=== PATIENT | female | born 1965 | race Caucasian/White ===

== ENCOUNTER 2016-11-18 09:02 | Emergency (ER) | payer OTHER ==
[~2016-11-18] VITALS: Ht 165.1 cm; Wt 92.0 kg
[~2016-11-18 09:02] MED LIST: ALPR0.5T99 PO; CELE20TA PO; OMEP20TA PO
[2016-11-18 09:03] VITALS: BP 138/88; PULSE 98; RESP 16; TEMP 98.8; O2SAT 97
[2016-11-18 09:20] VITALS: BP 117/82; PULSE 85; RESP 18; TEMP 98.7; O2SAT 98
[2016-11-18] MEDS ORDERED: MORPHINE SULFATE 4 MG/ML INJ IV PUSH ONE (09:30)
[2016-11-18] MEDS ORDERED: ONDANSETRON HCL 4 MG/2 ML VIAL IV PUSH ONE (09:30)
--- NOTE | 2016-11-18 09:31 | PD ---
HPI Chief Complaint: Abdominal pain Time Seen by Provider: 09:09 Travel History International Travel<30 days: No Contact w/Intl Traveler<30days: No History of Present Illness HPI 51yo F with PMH of obesity s/p gastric bypass about 5 years ago presents to the ED with c/o nausea, nonbloody vomiting, right upper abdominal pain for 4 days. States pain is worst after eating. Pt has been having this pain intermittent ofr 4 months and had extensive work up including CT scan, US, MRI, endoscopy. Pt had endoscopy around 4-6 weeks ago and did not show any ulcer. States she has intermittent low grade fever. Denies any chest pain, sob, dysuria, hematuria, vaginal bleeding or discharge, focal weakness. PFSH Past Medical History Cancer: No Cardiovascular Problems: No Endocrine: No Genitourinary: No Immune Disorder: No Musculoskeletal: No Neurologic: No Psychiatric: No Reproductive: No Respiratory: Yes Sleep Apnea: Yes Past Surgical History Oral Surgery: Yes (T&A CHILDHOOD) Pacemaker: No Social History Tobacco Use: No Allergies-Medications (Allergen,Severity, Reaction): Coded Allergies: No Known Allergies (Unverified , 11/18/16) Reported Meds & Prescriptions Reported Meds & Active Scripts Active Tylenol (Acetaminophen) 325 Mg Tab 650 Mg PO Q6H PRN Reported Zofran Odt (Ondansetron Odt) 4 Mg Tab 4 Mg SL Q8HR PRN Ropinirole 3 Mg Tab 3 Mg PO HS Pantoprazole (Pantoprazole Sodium) 40 Mg Tab 40 Mg PO DAILY Klonopin (Clonazepam) 0.5 Mg Tab 0.5 Mg PO BID Sertraline (Sertraline HCl) 50 Mg Tab 50 Mg PO DAILY Review of Systems Except as stated in HPI: all other systems reviewed are Neg Physical Exam Narrative GENERAL: 51yo F in mild distress. SKIN: Focused skin assessment warm/dry. HEAD: Atraumatic. Normocephalic. EYES: Pupils equal and round. No scleral icterus. No injection or drainage. CARDIOVASCULAR: Regular rate and rhythm. No murmur appreciated. RESPIRATORY: No accessory muscle use. Clear to auscultation. Breath sounds equal bilaterally. GASTROINTESTINAL: Abdomen soft, +TTP RUQ. No rebound tenderness or guarding. MUSCULOSKELETAL: No obvious deformities. No clubbing. No cyanosis. No edema. NEUROLOGICAL: Awake and alert. No obvious cranial nerve deficits. Motor grossly within normal limits. Normal speech. PSYCHIATRIC: Appropriate mood and affect; insight and judgment normal. Data Data Last Documented VS Vital Signs Date Time Temp Pulse Resp B/P (MAP) Pulse Ox O2 Delivery O2 Flow Rate FiO2 11/18/16 12:28 11/18/16 09:27 18 11/18/16 09:20 98.7 85 98 11/18/16 09:03 Room Air Orders Orders Complete Blood Count With Diff (11/18/16:18) Basic Metabolic Panel (Bmp) (11/18/16:18) Lipase (11/18/16:18) Hepatic Functional Panel (11/18/16) Prothrombin Time / Inr (Pt) (11/18/16:) Act Partial Throm Time (Ptt) (11/18/16:18) Us Abdomen Gallbladder (11/18/16 ) Ondansetron Inj (Zofran Inj) (11/18/16 09:30) Morphine Inj (Morphine Inj) (11/18/16 09:30) Ed Urine Pregnancytest Poc (11/18/16 09:18) Ed Discharge Order (11/18/16 11:53) Labs Laboratory Tests Test 11/18/16 09:25 White Blood Count 10.6 TH/MM3 Red Blood Count 4.23 MIL/MM3 Hemoglobin 11.8 GM/DL Hematocrit 35.0 % Mean Corpuscular Volume 82.8 FL Mean Corpuscular Hemoglobin 28.0 PG Mean Corpuscular Hemoglobin Concent 33.8 % Red Cell Distribution Width 17.3 % Platelet Count 407 TH/MM3 Mean Platelet Volume 7.2 FL Neutrophils (%) (Auto) 56.2 % Lymphocytes (%) (Auto) 37.4 % Monocytes (%) (Auto) 5.2 % Eosinophils (%) (Auto) 0.7 % Basophils (%) (Auto) 0.5 % Neutrophils # (Auto) 6.0 TH/MM3 Lymphocytes # (Auto) 4.0 TH/MM3 Monocytes # (Auto) 0.6 TH/MM3 Eosinophils # (Auto) 0.1 TH/MM3 Basophils # (Auto) 0.1 TH/MM3 CBC Comment DIFF FINAL Differential Comment Prothrombin Time 10.7 SEC Prothromb Time International Ratio 1.0 RATIO Activated Partial Thromboplast Time 26.8 SEC Blood Urea Nitrogen 11 MG/DL Creatinine 0.56 MG/DL Random Glucose 87 MG/DL Total Protein 7.1 GM/DL Albumin 3.3 GM/DL Calcium Level 8.5 MG/DL Alkaline Phosphatase 86 U/L Aspartate Amino Transf (AST/SGOT) 16 U/L Alanine Aminotransferase (ALT/SGPT) 16 U/L Total Bilirubin 0.3 MG/DL Direct Bilirubin 0.1 MG/DL Sodium Level 140 MEQ/L Potassium Level 3.7 MEQ/L Chloride Level 107 MEQ/L Carbon Dioxide Level 22.7 MEQ/L Anion Gap 10 MEQ/L Estimat Glomerular Filtration Rate 114 ML/MIN Indirect Bilirubin 0.2 MG/DL Lipase 158 U/L [facility] Medical Decision Making Medical Screen Exam Complete: Yes Emergency Medical Condition: Yes Interpretation(s) Laboratory Tests Test 11/18/16 09:25 White Blood Count 10.6 TH/MM3 (4.0-11.0) Red Blood Count 4.23 MIL/MM3 (4.00-5.30) Hemoglobin 11.8 GM/DL (11.6-15.3) Hematocrit 35.0 % (35.0-46.0) Mean Corpuscular Volume 82.8 FL (80.0-100.0) Mean Corpuscular Hemoglobin 28.0 PG (27.0-34.0) Mean Corpuscular Hemoglobin Concent 33.8 % (32.0-36.0) Red Cell Distribution Width 17.3 % (11.6-17.2) Platelet Count 407 TH/MM3 (150-450) Mean Platelet Volume 7.2 FL (7.0-11.0) Neutrophils (%) (Auto) 56.2 % (16.0-70.0) Lymphocytes (%) (Auto) 37.4 % (9.0-44.0) Monocytes (%) (Auto) 5.2 % (0.0-8.0) Eosinophils (%) (Auto) 0.7 % (0.0-4.0) Basophils (%) (Auto) 0.5 % (0.0-2.0) Neutrophils # (Auto) 6.0 TH/MM3 (1.8-7.7) Lymphocytes # (Auto) 4.0 TH/MM3 (1.0-4.8) Monocytes # (Auto) 0.6 TH/MM3 (0-0.9) Eosinophils # (Auto) 0.1 TH/MM3 (0-0.4) Basophils # (Auto) 0.1 TH/MM3 (0-0.2) CBC Comment DIFF FINAL Differential Comment Prothrombin Time 10.7 SEC (9.8-11.6) Prothromb Time International Ratio 1.0 RATIO Activated Partial Thromboplast Time 26.8 SEC (24.3-30.1) Blood Urea Nitrogen 11 MG/DL (7-18) Creatinine 0.56 MG/DL (0.50-1.00) Random Glucose 87 MG/DL (74-106) Total Protein 7.1 GM/DL (6.4-8.2) Albumin 3.3 GM/DL (3.4-5.0) Calcium Level 8.5 MG/DL (8.5-10.1) Alkaline Phosphatase 86 U/L (45-117) Aspartate Amino Transf (AST/SGOT) 16 U/L (15-37) Alanine Aminotransferase (ALT/SGPT) 16 U/L (10-53) Total Bilirubin 0.3 MG/DL (0.2-1.0) Direct Bilirubin 0.1 MG/DL (0.0-0.2) Sodium Level 140 MEQ/L (136-145) Potassium Level 3.7 MEQ/L (3.5-5.1) Chloride Level 107 MEQ/L (98-107) Carbon Dioxide Level 22.7 MEQ/L (21.0-32.0) Anion Gap 10 MEQ/L (5-15) Estimat Glomerular Filtration Rate 114 ML/MIN (>89) Indirect Bilirubin 0.2 MG/DL (0.0-0.8) Lipase 158 U/L (73-393) Last Impressions Gall Bladder Ultrasound 11/18/16 0000 Signed Impressions: Service Date/Time: Friday, November 18, 2016 09:36 - CONCLUSION: 1. Unremarkable ultrasound examination of the abdomen. Bandar Laboy MD Differential Diagnosis Acute cholecystitis vs. biliary colic vs. pancreatitis vs. gastritis Narrative Course 51yo F with intermittent RUQ pain for 4 months. negative. Pt has had an extensive work up as an outpatient and said there is a scheduled HIDA scan. Labs reviewed, no leukocytosis. LFT unremarkable. Lipase normal. US gallbladder unremarkable. Vital signs stable. Pt given morphine 4mg IV and zofran. Pt reevaluated at bedside and feels better. Pt has outpatient work up for this pain and can follow up as outpatient. Return precautions given. Diagnosis Primary Impression: Abdominal pain Qualified Codes: R10.11 - Right upper quadrant pain Patient Instructions: General Instructions Departure Forms: Tests/Procedures Additional Instructions: Please follow up with your primary care physician. Return to the ED if symptoms worsen. Med/Other Pt SpecificInfo: Prescription(s) given Scripts Acetaminophen (Tylenol) 325 Mg Tab 650 MG PO Q6H Y for PAIN SCALE 1 TO 4, #20 TAB 0 Refills Prov: Lawanda Ryan DO 11/18/16 Disposition: 01 DISCHARGE HOME Condition: Stable Lawanda Ryan DO Nov 18, 2016 09:30
[2016-11-18] MEDS ORDERED: CLON.5 PO (09:35)
[2016-11-18] MEDS ORDERED: SERT-132 PO (09:35)
[2016-11-18] MEDS ORDERED: ROPI3TAB PO (09:35)
[2016-11-18] MEDS ORDERED: PANT40TA3 PO (09:35)
[2016-11-18] MEDS ORDERED: ZOFR4TAB3 SL (09:37)
[2016-11-18 09:48] LABS: BASOPHIL # 0.1 TH/MM3 (0-0.2); BASOPHIL % 0.5 % (0.0-2.0); EOSINOPHIL # 0.1 TH/MM3 (0-0.4); EOSINOPHIL % 0.7 % (0.0-4.0); HEMO FLAGS DIFF FINAL; LYMPH % 37.4 % (9.0-44.0); MEAN CELL VOLUME 82.8 FL (80.0-100.0); MEAN CORPUSCULAR HGB CONC 33.8 % (32.0-36.0); MONO % 5.2 % (0.0-8.0); NEUT % 56.2 % (16.0-70.0); PLATELET COUNT 407 TH/MM3 (150-450); RED BLOOD COUNT 4.23 MIL/MM3 (4.00-5.30); RED CELL DISTRIBUTION WIDTH 17.3 % (11.6-17.2); WHITE BLOOD COUNT 10.6 TH/MM3 (4.0-11.0)
[2016-11-18 09:56] LABS: APTT (PATIENT) 26.8 SEC (24.3-30.1); PROTHROMBIN TIME - PATIENT 10.7 SEC (9.8-11.6)
[2016-11-18 10:10] LABS: BICARBONATE 22.7 MEQ/L (21.0-32.0); POTASSIUM 3.7 MEQ/L (3.5-5.1)
[2016-11-18 10:12] LABS: INDIRECT BILIRUBIN 0.2 MG/DL (0.0-0.8); TOTAL BILIRUBIN ADULT 0.3 MG/DL (0.2-1.0)
--- NOTE | 2016-11-18 10:42 | RADRPT ---
EXAM DATE/TIME: 11/18/2016 09:36 [facility] COMPARISON: No previous studies available for comparison. EXTERNAL COMPARISON : [employer] [facility], MR Abdomen, September 26, 2016CT Abdomen, TLI, 09/22/16 INDICATIONS : Right upper quadrant pain, nausea and vomiting. MEDICAL HISTORY : Right upper quadrant pain, nausea and vomiting. SURGICAL HISTORY : Gastric bypass. ENCOUNTER: Subsequent ACUITY: 4-6 months PAIN SCORE: 4/10 LOCATION: Right upper quadrant MEASUREMENTS: LIVER: 18.4 cm length COMMON DUCT: 4 mm RIGHT KIDNEY: 10.7 x 5.6 x 5.5 cm FINDINGS: LIVER: Normal echotexture without focal lesion or ductal dilatation. COMMON DUCT: No intraluminal mass or stone visualized. GALLBLADDER: Contains no stones, demonstrates no wall thickening or pericholecystic fluid. PANCREAS: The visualized portions are within normal limits. RIGHT KIDNEY: No evidence of hydronephrosis, stone, or mass. CONCLUSION: 1. Unremarkable ultrasound examination of the abdomen. Bandar Laboy MD on November 18, 2016 at 10:20 Board Certified Radiologist. This report was verified electronically.
[2016-11-18] MEDS ORDERED: TYLE325T PO (11:53)
== END 2016-11-18 12:39 | disposition home or self-care (01) ==
LOC: NEPE 09:02
DX: R10.11 Right upper quadrant pain (principal)
CPT/HCPCS: 76705; 80048; 80076; 83690; 84703; 85025; 85610; 85730; 96374; 96375; 99285; J2270; J2405

== ENCOUNTER 2016-11-21 15:07 | Emergency (ER) | payer OTHER ==
[~2016-11-21] VITALS: Ht 165.1 cm; Wt 95.0 kg
[~2016-11-21 15:07] MED LIST changes: +CLON.5 PO; +PANT40TA3 PO; +ROPI3TAB PO; +SERT-132 PO; +TYLE325T PO; +ZOFR4TAB3 SL
[2016-11-21 15:10] VITALS: BP 147/87; PULSE 97; RESP 18; TEMP 98.7; O2SAT 97
[2016-11-21 16:08] VITALS: BP 144/77; PULSE 75; RESP 16; O2SAT 94
[2016-11-21] MEDS ORDERED: SODIUM CHLOR 0.9% 1000 ML INJ 1,000 ML IV ONE (16:22)
--- NOTE | 2016-11-21 16:25 | PD ---
HPI Chief Complaint: GI Complaint Time Seen by Provider: 16:13 Travel History International Travel<30 days: No Contact w/Intl Traveler<30days: No Traveled to known affect area: No History of Present Illness HPI 51-year-old female presents to the emergency department for evaluation of nausea , vomiting, diarrhea that is been ongoing for 4 months. Patient states that her primary care physician has worked her up including MRI, CT abdomen/pelvis, 2 ultrasounds of the gallbladder. She states that she needs a HIDA scan, but is now just and they're unable to do it right now. Patient states that she had bariatric surgery done by Dr. Hoffmann 6 years ago. She has not been able to follow-up with him since symptoms have started. Her at bedside are hoping to have gallbladder removed. Patient was here 3 days ago and lab work, ultrasound the gallbladder were completed. Laboratory showed no acute abnormality. Ultrasound of the gallbladder was unremarkable. PFSH Past Medical History Anxiety: Yes Depression: Yes Cancer: No Cardiovascular Problems: No Diabetes: No Endocrine: No Genitourinary: No Immune Disorder: No Implanted Vascular Access Dvce: No Musculoskeletal: No Neurologic: No Psychiatric: No Reproductive: No Respiratory: Yes Sleep Apnea: Yes ?: Not Past Surgical History Abdominal Surgery: Yes (GASTRIC BYPASS 2010) Oral Surgery: Yes (T&A CHILDHOOD) Pacemaker: No Other Surgery: Yes Social History Alcohol Use: Yes (OCCAS) Tobacco Use: No Substance Use: No Allergies-Medications (Allergen,Severity, Reaction): Coded Allergies: No Known Allergies (Unverified , 11/18/16) Reported Meds & Prescriptions Reported Meds & Active Scripts Active Macrobid (Nitrofurantoin Monohydrate Macrocrystals) 100 Mg Capsule 100 Mg PO BID 7 Days Tylenol (Acetaminophen) 325 Mg Tab 650 Mg PO Q6H PRN Reported Zofran Odt (Ondansetron Odt) 4 Mg Tab 4 Mg SL Q8HR PRN Ropinirole 3 Mg Tab 3 Mg PO HS Pantoprazole (Pantoprazole Sodium) 40 Mg Tab 40 Mg PO DAILY Klonopin (Clonazepam) 0.5 Mg Tab 0.5 Mg PO BID Sertraline (Sertraline HCl) 50 Mg Tab 50 Mg PO DAILY Review of Systems Except as stated in HPI: all other systems reviewed are Neg Physical Exam Narrative GENERAL: Well-nourished, well-developed female patient, ambulatory. Afebrile. SKIN: Focused skin assessment warm/dry. HEAD: Normocephalic. Atraumatic. EYES: No scleral icterus. No injection or drainage. NECK: Supple, trachea midline. No JVD or lymphadenopathy. CARDIOVASCULAR: Regular rate and rhythm without murmurs, gallops, or rubs. RESPIRATORY: Breath sounds equal bilaterally. No accessory muscle use. Lungs sounds are clear to auscultation GASTROINTESTINAL: Abdomen soft, non-tender, nondistended. MUSCULOSKELETAL: No cyanosis, or edema. BACK: Nontender without obvious deformity. No CVA tenderness. Data Data Last Documented VS Vital Signs Date Time Temp Pulse Resp B/P (MAP) Pulse Ox O2 Delivery O2 Flow Rate FiO2 11/21/16 16:08 75 16 144/77 (99) 94 Room Air 11/21/16 15:10 98.7 Orders Orders Complete Blood Count With Diff (11/21/16 16:22) Comprehensive Metabolic Panel (11/21/16 16:22) Urinalysis - C+S If Indicated (11/21/16 16:22) Lipase (11/21/16 16:22) Iv Access Insert/Monitor (11/21/16 16:22) Ecg Monitoring (11/21/16 16:22) Oximetry (11/21/16 16:22) Ondansetron Inj (Zofran Inj) (11/21/16 16:30) Sodium Chlor 0.9% 1000 Ml Inj (Ns 1000 M (11/21/16 16:22) Sodium Chloride 0.9% Flush (Ns Flush) (11/21/16 16:30) Urine Culture (11/21/16 16:34) Ed Discharge Order (11/21/16 18:17) Labs Laboratory Tests Test 11/21/16 16:29 11/21/16 16:34 White Blood Count 10.8 TH/MM3 Red Blood Count 4.66 MIL/MM3 Hemoglobin 12.4 GM/DL Hematocrit 38.7 % Mean Corpuscular Volume 83.0 FL Mean Corpuscular Hemoglobin 26.6 PG Mean Corpuscular Hemoglobin Concent 32.1 % Red Cell Distribution Width 17.5 % Platelet Count 441 TH/MM3 Mean Platelet Volume 7.5 FL Neutrophils (%) (Auto) 45.1 % Lymphocytes (%) (Auto) 47.0 % Monocytes (%) (Auto) 6.5 % Eosinophils (%) (Auto) 0.7 % Basophils (%) (Auto) 0.7 % Neutrophils # (Auto) 4.9 TH/MM3 Lymphocytes # (Auto) 5.0 TH/MM3 Monocytes # (Auto) 0.7 TH/MM3 Eosinophils # (Auto) 0.1 TH/MM3 Basophils # (Auto) 0.1 TH/MM3 CBC Comment DIFF FINAL Differential Comment Blood Urea Nitrogen 11 MG/DL Creatinine 0.66 MG/DL Random Glucose 85 MG/DL Total Protein 7.8 GM/DL Albumin 3.7 GM/DL Calcium Level 9.1 MG/DL Alkaline Phosphatase 89 U/L Aspartate Amino Transf (AST/SGOT) 18 U/L Alanine Aminotransferase (ALT/SGPT) 15 U/L Total Bilirubin 0.4 MG/DL Sodium Level 139 MEQ/L Potassium Level 3.3 MEQ/L Chloride Level 106 MEQ/L Carbon Dioxide Level 22.9 MEQ/L Anion Gap 10 MEQ/L Estimat Glomerular Filtration Rate 94 ML/MIN Lipase 145 U/L Urine Color YELLOW Urine Turbidity HAZY Urine pH 6.0 Urine Specific [place] 1.019 Urine Protein NEG mg/dL Urine Glucose (UA) NEG mg/dL Urine Ketones NEG mg/dL Urine Occult Blood NEG Urine Nitrite NEG Urine Bilirubin NEG Urine Urobilinogen 2.0 MG/DL Urine Leukocyte Esterase LARGE Urine WBC 16 /hpf Urine Squamous Epithelial Cells 2 /hpf Urine Bacteria OCC /hpf Urine Mucus FEW /lpf Microscopic Urinalysis Comment CULTURE INDICATED MDM Medical Decision Making Medical Screen Exam Complete: Yes Emergency Medical Condition: Yes Medical Record Reviewed: Yes Differential Diagnosis Cholelithiasis versus cholecystitis versus chronic abdominal pain Narrative Course 51-year-old female presents to the emergency department for nausea, vomiting, diarrhea, abdominal pain for 4 months. Patient was seen here 3 days ago the emergency department had unremarkable workup and ultrasound. The patient is frustrated as she does not have an answer to her pain. She is unable to HIDA scan at this time due to lack of dye. He has not followed up with Dr. Rojas at this time. CBC shows no acute abnormality. Patient is slightly hypokalemic with a potassium of 3.3. UA shows large leukocyte esterase, 16 WBC , occasional bacteria. My attending physician, Dr. Goodman, spoke with family as well as their frustrated and wanted her to have her gallbladder out today. There is no evidence of acute infection at this time. The states that he called Dr. Rojas's office who states that we should call Dr. Peters who is on-call for Dr. Rojas,, about what is going on. The has been is adamant that we contact the surgeon. He does state that the office stated that they could fit him in on Thursday. Before Dr. Peters could return call, the patient and her wanted to leave. She is provided a prescription for Macrobid for UTI. She is instructed to follow up with Dr. Rojas. Diagnosis Primary Impression: RUQ abdominal pain Additional Impression: Urinary tract infection Qualified Codes: N30.00 - Acute cystitis without hematuria Referrals: Edmund Bobby MD 3 days Patient Instructions: Abdominal Pain (ED), General Instructions Additional Instructions: Follow-up with Dr. Rojas on Thursday. Return the emergency department for any acute worsening of symptoms. Med/Other Pt SpecificInfo: Prescription(s) given Scripts Nitrofurantoin Monohydrate Macrocrystals (Macrobid) 100 Mg Capsule 100 MG PO BID for Infection for 7 Days, #14 CAP 0 Refills Prov: Yojana De Los Santos 11/21/16 Disposition: 01 DISCHARGE HOME Condition: Stable Yojana De Los Santos Nov 21, 2016 16:25
[2016-11-21] MEDS ORDERED: SODIUM CHLORIDE 0.9% FLUSH 10 ML FLUSH IVF PRN (16:30)
[2016-11-21] MEDS ORDERED: ONDANSETRON HCL 4 MG/2 ML VIAL IV PUSH ONE (16:30)
[2016-11-21 16:59] LABS: AUTOMATED NEUTROPHIL # 4.9 TH/MM3 (1.8-7.7); BASOPHIL # 0.1 TH/MM3 (0-0.2); BASOPHIL % 0.7 % (0.0-2.0); EOSINOPHIL # 0.1 TH/MM3 (0-0.4); EOSINOPHIL % 0.7 % (0.0-4.0); HEMATOCRIT 38.7 % (35.0-46.0); HEMO FLAGS DIFF FINAL; MEAN CORPUSCULAR HEMOGLOBIN 26.6 PG (27.0-34.0); MEAN CORPUSCULAR HGB CONC 32.1 % (32.0-36.0); MONO % 6.5 % (0.0-8.0); NEUT % 45.1 % (16.0-70.0); PLATELET COUNT 441 TH/MM3 (150-450); RED BLOOD COUNT 4.66 MIL/MM3 (4.00-5.30); RED CELL DISTRIBUTION WIDTH 17.5 % (11.6-17.2); WHITE BLOOD COUNT 10.8 TH/MM3 (4.0-11.0)
[2016-11-21 17:09] LABS: BACTERIA, URINE OCC /hpf; BLOOD, URINE NEG (NEG); COMMENT (UR) CULTURE INDICATED; CULTURE IF INDICATED CULTURE INDICATED; GLUCOSE,URINE NEG (NEG); KETONE, URINE NEG (NEG); MUCUS URINE FEW /lpf (OCC); NITRITE,URINE NEG (NEG); SQUAMOUS EPITHELIAL CELL URINE 2 /hpf (0-5); URINE COLOR YELLOW (YELLW/STRAW)
[2016-11-21 17:11] LABS: ALT (GPT) 15 U/L (10-53); ANION GAP 10 MEQ/L (5-15); AST (GOT) 18 U/L (15-37); BICARBONATE 22.9 MEQ/L (21.0-32.0); BLOOD UREA NITROGEN 11 MG/DL (7-18); CHLORIDE 106 MEQ/L (98-107); GLOMERULAR FILTRATION RATE 94 ML/MIN (>89); POTASSIUM 3.3 MEQ/L (3.5-5.1); SODIUM (NA) 139 MEQ/L (136-145)
[2016-11-21 17:14] LABS: ALKALINE PHOSPHATASE 89 U/L (45-117); TOTAL BILIRUBIN ADULT 0.4 MG/DL (0.2-1.0)
[2016-11-21] MEDS ORDERED: MACR100C2 PO (17:45)
--- NOTE | 2016-11-21 19:18 | PD ---
Data Data Last Documented VS Vital Signs Date Time Temp Pulse Resp B/P (MAP) Pulse Ox O2 Delivery O2 Flow Rate FiO2 11/21/16 18:50 11/21/16 16:08 75 16 94 Room Air 11/21/16 15:10 98.7 Orders Orders Complete Blood Count With Diff (11/21/16 16:22) Comprehensive Metabolic Panel (11/21/16 16:22) Urinalysis - C+S If Indicated (11/21/16 16:) Lipase (11/21/16:) Iv Access Insert/Monitor (11/21/16 16:22) Ecg Monitoring (11/21/16 16:) Oximetry (11/21/16 16:) Ondansetron Inj (Zofran Inj) (11/21/16 16:30) Sodium Chlor 0.9% 1000 Ml Inj (Ns 1000 M (11/21/16 16:22) Sodium Chloride 0.9% Flush (Ns Flush) (11/21/16 16:30) Urine Culture (11/21/16 16:34) Ed Discharge Order (11/21/16 18:17) Labs Laboratory Tests Test 11/21/16 16:29 11/21/16 16:34 White Blood Count 10.8 TH/MM3 Red Blood Count 4.66 MIL/MM3 Hemoglobin 12.4 GM/DL Hematocrit 38.7 % Mean Corpuscular Volume 83.0 FL Mean Corpuscular Hemoglobin 26.6 PG Mean Corpuscular Hemoglobin Concent 32.1 % Red Cell Distribution Width 17.5 % Platelet Count 441 TH/MM3 Mean Platelet Volume 7.5 FL Neutrophils (%) (Auto) 45.1 % Lymphocytes (%) (Auto) 47.0 % Monocytes (%) (Auto) 6.5 % Eosinophils (%) (Auto) 0.7 % Basophils (%) (Auto) 0.7 % Neutrophils # (Auto) 4.9 TH/MM3 Lymphocytes # (Auto) 5.0 TH/MM3 Monocytes # (Auto) 0.7 TH/MM3 Eosinophils # (Auto) 0.1 TH/MM3 Basophils # (Auto) 0.1 TH/MM3 CBC Comment DIFF FINAL Differential Comment Blood Urea Nitrogen 11 MG/DL Creatinine 0.66 MG/DL Random Glucose 85 MG/DL Total Protein 7.8 GM/DL Albumin 3.7 GM/DL Calcium Level 9.1 MG/DL Alkaline Phosphatase 89 U/L Aspartate Amino Transf (AST/SGOT) 18 U/L Alanine Aminotransferase (ALT/SGPT) 15 U/L Total Bilirubin 0.4 MG/DL Sodium Level 139 MEQ/L Potassium Level 3.3 MEQ/L Chloride Level 106 MEQ/L Carbon Dioxide Level 22.9 MEQ/L Anion Gap 10 MEQ/L Estimat Glomerular Filtration Rate 94 ML/MIN Lipase 145 U/L Urine Color YELLOW Urine Turbidity HAZY Urine pH 6.0 Urine Specific [place] 1.019 Urine Protein NEG mg/dL Urine Glucose (UA) NEG mg/dL Urine Ketones NEG mg/dL Urine Occult Blood NEG Urine Nitrite NEG Urine Bilirubin NEG Urine Urobilinogen 2.0 MG/DL Urine Leukocyte Esterase LARGE Urine WBC 16 /hpf Urine Squamous Epithelial Cells 2 /hpf Urine Bacteria OCC /hpf Urine Mucus FEW /lpf Microscopic Urinalysis Comment CULTURE INDICATED MDM Supervised Visit with YSABEL: Yes Narrative Course The history, exam, and medical decision-making in the associated midlevel provider note were completed with my assistance. I reviewed and agree with the findings presented. I attest that I had a [id number] encounter with the patient on the same day, and personally performed and documented my assessment and findings in the medical record. *My assessment and Findings: This is a 51-year-old female who presents to the emergency department with right upper quadrant pain that's been persistent for 4 months. She's had multiple evaluations including an endoscopy, CT scan, MRI and multiple ultrasounds. At this point it is thought that the etiology is her gallbladder although she has no stones. HIDA scan has been recommended to her but she's been unable to get it because they are out of the contrast agent. She has an appointment scheduled with Dr. Rojas who did her [id number] 3 years ago and she called today to get it rescheduled for Thursday. Labs were obtained which were all reassuring. She had an ultrasound which again was reassuring. This pain is chronic. The family had the expectation that they would be admitted for surgery and that they would see a general surgeon in the emergency department. I counseled them that given she has no signs of acute cholecystitis currently and her imaging and blood work is reassuring I think she is safe for outpatient follow-up on Thursday. We did say that we would talk to Dr. Peters who is on-call for Dr. Bobby. Ultimately the family became frustrated and didn't want to wait for the phone call. I do think she is safe for outpatient follow up. Pt. was discharged with antibiotic for urinary tract infection. Diagnosis Primary Impression: RUQ abdominal pain Additional Impression: Urinary tract infection Referrals: Edmund Bobby MD call for appointment Patient Instructions: General Instructions, Abdominal Pain (ED) Departure Forms: Tests/Procedures Additional Instruction: Follow-up with Dr. Rojas on Thursday. Return the emergency department for any acute worsening of symptoms. Scripts Nitrofurantoin Monohydrate Macrocrystals (Macrobid) 100 Mg Capsule 100 MG PO BID for Infection for 7 Days, #14 CAP 0 Refills Prov: FilibertoYojana 11/21/16 Disposition: 01 DISCHARGE HOME Condition: Stable Shira Harley MD Nov 21, 2016 19:18
== END 2016-11-21 18:51 | disposition home or self-care (01) ==
LOC: NEPE 15:07
DX: N30.00 Acute cystitis without hematuria (principal); F41.9 Anxiety disorder, unspecified; F32.9 Major depressive disorder, single episode, unspecified; Z79.899 Other long term (current) drug therapy
CPT/HCPCS: 80053; 81001; 83690; 85025; 87086; 96374; 99284; J2405; J7030

== ENCOUNTER 2016-11-26 08:02 | Inpatient (IN) | payer OTHER ==
[~2016-11-26] VITALS: Ht 166.4 cm; Wt 93.0 kg
[~2016-11-26 08:02] MED LIST changes: -ALPR0.5T99 PO; -CELE20TA PO; +MACR100C2 PO; -OMEP20TA PO
[2016-11-26] MEDS ORDERED: METOPROLOL TARTRATE 25 MG TAB PO PRN ×2 (09:00→14:45)
[2016-11-26] MEDS ORDERED: APREPITANT 40 MG CAP PO SCH (09:00)
[2016-11-26] MEDS ORDERED: ceFAZolin 2 GM PREMIX 50 ML IV SCH (09:00)
[2016-11-26] MEDS ORDERED: INSULIN HUMAN REGULAR 1,000 UNITS/10 ML VIAL SQ PRN ×2 (09:00→14:45)
[2016-11-26] MEDS ORDERED: ACETAMINOPHEN 1000 MG/100 ML 100 ML IV SCH (09:00)
[2016-11-26] MEDS ORDERED: SODIUM CHLORID 0.9% 500 ML IV PRN ×2 (09:00)
[2016-11-26] MEDS ORDERED: LACTATED RINGER'S 1000 ML IV PRN ×2 (09:00)
[2016-11-26] MEDS ORDERED: metroNIDAZOLE 500 MG INJ 100 ML IV SCH (09:00)
[2016-11-26] MEDS ORDERED: ONDANSETRON HCL 4 MG/2 ML VIAL IV PUSH SCH (09:00)
[2016-11-26] MEDS ORDERED: POVIDONE IODINE 5% (ANTISEPSIS KIT) 4 APPLICATIONS EACH NARE PRN ×2 (09:00→14:45)
[2016-11-26] MEDS ORDERED: CHLORHEXIDINE GLUCONATE 2 % 1 PACK (2 CLOTHS) TOPICAL PRN ×2 (09:00→14:45)
[2016-11-26] MEDS ORDERED: BUPIVACAINE/EPINEPHRINE 0.25% 50 ML VIAL ONE (10:27)
[2016-11-26] MEDS ORDERED: NEOSTIGMINE 3 MG/3 ML SYR IV ONE (12:00)
[2016-11-26] MEDS ORDERED: ROCURONIUM INJ 50 MG/5 ML SYRINGE IV PUSH ONE (12:00)
[2016-11-26] MEDS ORDERED: LACTATED RINGER'S 1000 ML INJ 1,000 ML IV ONE (12:00)
[2016-11-26] MEDS ORDERED: MIDAZOLAM HCL 2 MG/2 ML VIAL IV ONE (12:00)
[2016-11-26] MEDS ORDERED: DEXAMETHASONE SOD PHOS 4 MG/ML VIAL IV ONE (12:00)
[2016-11-26] MEDS ORDERED: LIDOCAINE HCL 1% PF 5 ML AMPULE OTHER ONE (12:00)
[2016-11-26] MEDS ORDERED: GLYCOPYRROLATE 1 MG/5 ML SYRINGE IV PUSH ONE (12:00)
[2016-11-26] MEDS ORDERED: PROPOFOL 200 MG/20 ML AMP IV ONE (12:00)
[2016-11-26] MEDS ORDERED: KETOROLAC TROMETHAMINE 30 MG/ML (IVP) VIAL IV PUSH ONE (12:00)
[2016-11-26] MEDS: SODIUM CHLOR 0.9% 1000 ML INJ 1,000 ML IV SCH ×2 (12:11→22:16)
[2016-11-26] MEDS ORDERED: MORPHINE SULFATE 4 MG/ML INJ IV PUSH PRN ×2 (12:15)
[2016-11-26] MEDS ORDERED: SODIUM CHLORIDE 0.9% FLUSH 10 ML FLUSH IV FLUSH PRN (12:15)
[2016-11-26] MEDS ORDERED: METOCLOPRAMIDE HCL 10 MG/2 ML VIAL IV PUSH PRN (12:15)
[2016-11-26] MEDS ORDERED: oxyCODONE/ACETAMINOPHEN 5 MG/325 MG TAB PO PRN (12:15)
[2016-11-26] MEDS ORDERED: *PROMETHAZINE 25 MG/ML VIAL PERIprocedural use ONLY ONE (12:26)
[2016-11-26] MEDS ORDERED: DO NOT ADM ANY ANTICOAGULANT DRUGS PRN (12:27)
[2016-11-26] MEDS ORDERED: SODIUM CHLORID 0.9% 500 ML INJ 500 ML IV ONE (12:30)
[2016-11-26] MEDS ORDERED: *HYDROmorphone PF 1 MG VIAL PERIprocedural Use ONLY ONE ×2 (12:33→13:41)
--- NOTE | 2016-11-26 13:42 | EKG ---
Date Performed: 11/26/2016 Time Performed: 09:27:49 PTAGE: 51 years EKG: Sinus rhythm LOW QRS VOLTAGE IN PRECORDIAL LEADS BORDERLINE ECG NO PREVIOUS TRACING DOCTOR: Aime Fowler Interpretating Date/Time 11/26/2016 13:39:32
[2016-11-26 16:37] VITALS: BP 127/75; PULSE 61; RESP 19; TEMP 97.6; O2SAT 96
[2016-11-26 18:16] VITALS: O2SAT 96
[2016-11-26] MEDS: metroNIDAZOLE 500 MG INJ 100 ML IV SCH (18:42)
[2016-11-26 20:00] VITALS: BP 137/69; PULSE 63; RESP 17; TEMP 98.6; O2SAT 17
[2016-11-26] MEDS: ceFAZolin 2 GM PREMIX 50 ML IV SCH (20:26)
[2016-11-26] MEDS: oxyCODONE/ACETAMINOPHEN 10 MG/325 MG TAB PO PRN (20:27)
[2016-11-26] MEDS: SODIUM CHLORIDE 0.9% FLUSH 10 ML FLUSH IV FLUSH SCH (20:31)
[2016-11-27] VITALS: BP 136/65; PULSE 63; RESP 16; TEMP 98; O2SAT 96
[2016-11-27] MEDS: oxyCODONE/ACETAMINOPHEN 10 MG/325 MG TAB PO PRN ×4 (00:52→13:24)
[2016-11-27] MEDS: metroNIDAZOLE 500 MG INJ 100 ML IV SCH ×2 (00:52→09:12)
[2016-11-27 04:00] VITALS: BP 130/60; PULSE 59; RESP 16; TEMP 97.5; O2SAT 94
[2016-11-27] MEDS: ceFAZolin 2 GM PREMIX 50 ML IV SCH ×2 (04:12→11:16)
[2016-11-27 08:00] VITALS: BP 141/85; PULSE 61; RESP 17; TEMP 97.7; O2SAT 92
--- NOTE | 2016-11-27 08:33 | MP ---
cc: EDMUND BOBBY DATE OF 1965 DATE OF OPERATION 11/26/2016 PREOPERATIVE DIAGNOSIS Gallbladder dysfunction. POSTOPERATIVE DIAGNOSES 1. Gallbladder dysfunction, path pending. 2. Candy cane Josh limb. 3. Intraabdominal adhesions. PROCEDURE Laparoscopic cholecystectomy, resection of candy cane Josh limb, lysis of adhesions. SURGEON Edmund Bobby MD ANESTHESIA General endotracheal anesthesia. ESTIMATED BLOOD LOSS Scant. FINDINGS Distended gallbladder. The patient's Josh limb was significantly distended at the blind limb. The patient's gastric pouch was dissected as well. The patient had adhesions of Josh limb to the small bowel mesentery. There was no internal hernia. No Mims defect at the enteroenterostomy. SPECIMEN Gallbladder. COMPLICATIONS None. DESCRIPTION OF PROCEDURE The patient was brought to the operating room and placed on the operating table in a supine position. A bilateral sequential inflation device was placed on the lower extremities. General anesthesia was instituted, antibiotics initiated. The abdomen was prepped and draped sterilely. A point in the periumbilical region was anesthetized with 0.25% Marcaine with epinephrine. A skin incision was made. A 5 mm Optiview port was placed under direct vision, a pneumoperitoneum created. Under direct vision a 12 mm subxiphoid and two 5 mm right upper quadrant ports were placed. Prior to placement of all ports the skin and peritoneum were anesthetized with 0.25% Marcaine with epinephrine. The patient was placed in reverse Trendelenburg position, right side up. The gallbladder was retracted into the upper abdomen. The infundibulum was retracted. Calot's triangle was opened. The hepatoduodenal ligament was incised. The cystic artery was identified. It was circumferentially dissected with the Harmonic scalpel and then divided with the Harmonic scalpel. The cystic duct was identified, circumferentially dissected and divided with the Harmonic scalpel. The gallbladder was removed from the liver bed using the Harmonic scalpel. It was retrieved from the peritoneal cavity in an Endopouch through the 12 mm port site. The operative site was inspected. Hemostasis was present. There was no evidence of bile leak. Once the gallbladder was removed, attention was focused in the epigastrium. The Josh limb was found to have a dilated stump. It was decided to remove this end as this could lead to symptoms of nausea and abdominal pain. The harmonic scalpel was used to separate the mesentery on the blind limb. An endovascular stapler was then used to divide the blind limb at the gastrojejunostomy. Care was taken not to encroach on the gastrojejunostomy. This was performed using a blue load reinforced with SeamGuard to the. The small bowel stump was then removed from the peritoneal cavity in the Endopouch. There were adhesions of the Josh limb to the mesentery. These were taken down using sharp dissection. The operative field inspected. Hemostasis was present. The Josh limb appeared to lay well following adhesiolysis. The CO2 was then released. All ports were removed. All skin incisions were closed with 4-0 Monocryl. The abdominal wall was cleaned and a sterile dressing placed. The patient was awakened and taken to the recovery room. MD RADHA Montesinos/SSB /8:02 AM /8:12 AM
[2016-11-27] MEDS ORDERED: PANTOPRAZOLE SODIUM 40 MG VIAL IV PUSH SCH (09:00)
[2016-11-27] MEDS ORDERED: SERTRALINE HCL 50 MG TAB PO SCH (09:00)
[2016-11-27] MEDS: SODIUM CHLORIDE 0.9% FLUSH 10 ML FLUSH IV FLUSH SCH (09:00)
[2016-11-27] MEDS: SODIUM CHLOR 0.9% 1000 ML INJ 1,000 ML IV SCH ×2 (09:12→11:18)
[2016-11-27 12:00] VITALS: BP 135/72; PULSE 55; RESP 17; TEMP 97.2; O2SAT 95
[2016-11-27] MEDS ORDERED: ENOXAPARIN SODIUM 40 MG/0.4 ML SYRINGE SQ SCH (12:00)
--- NOTE | 2016-11-27 12:10 | HHI.PR ---
Subjective Subjective Notes Sitting up in bed No GI complaints Tolerating liquids Passing flatus Objective Vitals/I&O Vital Signs Date Time Temp Pulse Resp B/P (MAP) Pulse Ox O2 Delivery O2 Flow Rate FiO2 11/27/16 08:00 97.7 61 17 141/85 (103) 92 11/26/16 18:16 21 11/26/16 16:00 Nasal Cannula 3 Cardiovascular: Regular Lungs: Clear Abdomen: Post-op tenderness Extremities: Perfused Wound Wound : Wound Location: Abdomen Appearance: Clean & Dry A/P Assessment and Plan 51yo F with history or RNY POD# laparoscopic cholecystectomy and lysis of adhesions -Continue with frequent ambulation -Full liquid diet with protein shakes. No concentrated sweets -Follow up in the office in 2 weeks. Discharge Planning D/C home today Arlene Kuhn Nov 27, 2016 12:10
[2016-11-27 12:40] VITALS: O2SAT 92
[2016-11-27] MEDS ORDERED: ZOFR4TAB3 SL (14:59)
== END 2016-11-27 15:58 | disposition home or self-care (01) | DRG 419 ==
LOC: HSDC 08:02 → HSDI 12:13 → N07A 16:18 → OBSVTOIN 11-27 12:40
PROVIDERS: ADMIT Surgery; ATTEND Surgery
PROC: 0FT44ZZ Resection of Gallbladder, Percutaneous Endoscopic Approach (ICD-10-PCS; principal; 2016-11-26 10:42)
PROC: 0DB84ZZ Excision of Small Intestine, Percutaneous Endoscopic Approach (ICD-10-PCS; 2016-11-26 10:42)
DX: K82.8 Other specified diseases of gallbladder (principal); F32.9 Major depressive disorder, single episode, unspecified; K21.9 Gastro-esophageal reflux disease without esophagitis; K66.0 Peritoneal adhesions (postprocedural) (postinfection); Z98.84 Bariatric surgery status; Z87.891 Personal history of nicotine dependence
CPT/HCPCS: 88304; 93005; 96365; 96366; 96372; C9113; G0378; J0131; J0690; J1100; J1170; J1650; J1885; J2250; J2405; J2550; J2710; J3010; J7030; J7120; J8501

== ENCOUNTER 2018-01-18 20:00 | Inpatient (IN) ==
--- NOTE | 2018-01-18 20:26 | ED ---
HPI General Chief Complaint: Psychiatric Symptoms Stated Complaint: OD/Psych ([facility]) Time Seen by Provider: 01/18/18 20:18 Source: patient, EMS and police Mode of arrival: EMS Limitations: no limitations History of Present Illness HPI Narrative: Patient is a 52-year-old female presenting to the emergency department under [place] act for psychiatric evaluation after intentionally overdosing on trazodone. Patient reports that she took 10-15 trazodone, she is not sure of the milligrams. She states she did this in an effort to get her to pay attention to her. Patient states she is been an argument with her for the last 3 days and he has been giving her the silent treatment. Patient denies any previous suicide attempt, she states that she did not mean to hurt herself however according to the Goldsmith act patient reportedly told police that she thought by taking that many pills it would kill her. She does have a history of depression, has been reported to police that they have been changing her medication. Patient was found by EMS conscious but incoherent on the ground with shallow respirations. She was initially evaluated by [place] fire department. Patient denies any pain at this time. She reports drinking at least 2 vodka drinks this evening. She denies any excessive alcohol intake. She denies any illicit drug use. She denies any hallucinations. She reports a history of depression that spans over the last 30 years. She states she does not feel her medications are working in does not feel that her psychiatrist listens to her. complaint: Reports intentional overdose Onset (ago): hour(s) Timing confirmed by: spouse trazodone: Number of Pills Ingested: 10 Related Data Home Medications Medication Instructions Recorded Confirmed bupropion HCl [Wellbutrin XL] 150 mg PO QAM 01/18/18 01/18/18 buspirone 01/18/18 clonazepam 01/18/18 Allergies Allergy/AdvReac Type Severity Reaction Status Date / Time No Known Allergies Allergy Verified 01/18/18 20:10 Review of Systems ROS: all other systems reviewed are negative PMFSH History History Provided By: Patient and Geospatial Intelligence Analyst / EMT Medical History Medical History Anxiety (Acute) Depression (Acute) Social History Social History Substance History: No History of Abuse and Active Abuse Smoking Status: Never smoker How Often Do You Have a Drink Containing Alcohol: 4 or more times a week Recent Travel in [place] within the Last 8 Weeks: No Recent Out of Country Travel within the Last 8 Weeks: No Exam Narrative Exam Narrative: GENERAL: Overweight, well-developed, drowsy female. Appears older than stated age, presenting in no acute distress. SKIN: Focused skin assessment warm/dry. HEAD: Atraumatic. Normocephalic. EYES: Pupils equal and round. No scleral icterus. No injection or drainage. ENT: No nasal bleeding or discharge. Mucous membranes pink and moist. NECK: Trachea midline. No JVD. CARDIOVASCULAR: Regular rate and rhythm. No murmur appreciated. RESPIRATORY: No accessory muscle use. Clear to auscultation. Breath sounds equal bilaterally. GASTROINTESTINAL: Abdomen soft, non-tender, nondistended. Hepatic and splenic margins not palpable. MUSCULOSKELETAL: No obvious deformities. No clubbing. No cyanosis. No edema. NEUROLOGICAL: Awake and alert. No obvious cranial nerve deficits. Motor grossly within normal limits. Normal speech. PSYCHIATRIC: Depressed mood and flat affect; insight and judgment normal. Course Initial Documented Vital Signs Temperature 98.6 F 01/18/18 20:17 Pulse Rate 90 01/18/18 20:17 Respiratory Rate 14 01/18/18 20:17 Blood Pressure 143/74 H 01/18/18 20:17 Pulse Oximetry 100 01/18/18 20:17 Last Documented Vital Signs Temperature 98.6 F 01/18/18 20:17 Pulse Rate 90 01/19/18 01:00 Respiratory Rate 14 01/19/18 01:00 Blood Pressure 101/52 L 01/19/18 01:00 Pulse Oximetry 98 01/19/18 01:00 Sign Out Sign Out Data: Patient Sign Out occurred on 01/19/18 at 01:07. Patient's care was discussed, and care was transferred from Yadira Hernandez to Bailey Truong MD. Sign Out Comment: Pt will need to be observed in ED for a total of 6 hours per poison control > med clear for psych Last updated by Yadira Hernandez ARNP at 01/18/18 22:53 Post-Handoff Eval: The patient reportedlyPatient's case was checked out to me at the conclusion of Yadira shift. Please see her initial history and physical. The patient reportedly intentionally overdosed on trazodone. Poison control recommended a 6 -hour observation. During the course of the patient was placed on a rn cardiac rehab with oximetry and frequent blood pressure monitoring. The patient had IV access obtained and blood work sent for analysis. The patient was initially provided IV fluid bolus was repeated x1, potassium supplementation orally when hypokalemic. The patient's diagnostic studies are remarkable for a white count of 14.1, hemoglobin 11.4, platelets 370 with 82 neutrophils, chemistry is remarkable for potassium 3.1, chloride 110, CO2 16.1, GFR of 74, calcium 8.3, troponin I less than 0.02, TSH within normal limits. Urinalysis showed hazy urine base ketones moderate leukocyte esterase many bacteria, 1 squamous epithelial cell, culture indicated. Urine drug screen was negative, alcohol level was 59, acetaminophen less than 2, salicylate 3.8. Repeat EKG at the 6-hour dave reveals a sinus rhythm heart rate of 87, QRS duration is 81 ms, QTC 439 ms. The patient has been medically cleared for evaluation by the psychiatric screener and psychiatrist under a [employer] act. Medical Decision Making MDM Narrative Medical decision making narrative: Patient presented under Goldsmith act after an intentional overdose. Labs ordered and pending, IV fluids ordered, Poison control will be notified. Initial EKG shows sinus rhythm, nonspecific T wave abnormality. Heart rate of 96, Qtc 295/348. Labs reviewed, CBC with WBC of 14.1, likely stress response. K+ of 3.1, oral replacement ordered. UA with reflex culture pending. Pt has no c/o urinary symptoms. Will defer treatment until culture results. Poison control notified by RN. Will keep pt in ED for 6 hours to observe for hemodynamic instability. Additional liter of IVF ordered for BP of 100/55. Will continue to monitor. Medical Screen Exam Complete: Yes Emergency Medical Condition: Yes Lab Data Lab results reviewed: Yes I reviewed the patient's lab results. Result diagrams: 01/18/18 20:00 01/18/18 20:00 POC Results POC Urine Results Negative Lab Results 01/18/18 01/18/18 01/18/18 Range/Units 20:00 20:00 20:00 WBC 14.1 H (4.0-11.0) th/mm3 RBC 4.48 (4.00-5.30) mil/mm3 Hgb 11.4 L (11.6-15.3) gm/dL Hct 36.1 (35.0-46.0) % MCV 80.7 (80.0-100.0) fL MCH 25.4 L (27.0-34.0) pg MCHC 31.5 L (32.0-36.0) % RDW 18.9 H (11.6-17.2) % Plt Count 370 (150-450) th/mm3 MPV 6.9 L (7.0-11.0) fL Neut % (Auto) 82.0 H (16.0-70.0) % Lymph % (Auto) 13.0 (9.0-44.0) % [place]linger % (Auto) 4.3 (0.0-8.0) % Eos % (Auto) 0.2 (0.0-4.0) % Baso % (Auto) 0.5 (0.0-2.0) % Neut # (Auto) 11.6 H (1.8-7.7) th/mm3 Lymph # (Auto) 1.8 (1.0-4.8) th/mm3 Bollinger # (Auto) 0.6 (0.0-0.9) th/mm3 Eos # (Auto) 0.0 (0.0-0.4) th/mm3 Baso # (Auto) 0.1 (0.0-0.2) th/mm3 WBC Differential . Differential Comment Auto diff final Sodium 141 (136-145) meq/L Potassium 3.1 L (3.5-5.1) meq/L Chloride 110 H (98-107) meq/L Carbon Dioxide 16.1 L (21.0-32.0) meq/L Anion Gap 15 (5-15) meq/L BUN 12 (7-18) mg/dL Creatinine 0.81 (0.50-1.00) mg/dL Estimated GFR 74 L (>89) mL/min Random Glucose 76 (74-106) mg/dL Calcium 8.3 L (8.5-10.1) mg/dL Magnesium 2.0 (1.5-2.5) mg/dL Total Bilirubin 0.2 (0.2-1.0) mg/dL AST 18 (15-37) U/L ALT 18 (10-53) U/L Alkaline Phosphatase 102 (45-117) U/L Troponin I Less than 0.02 L (0.02-0.05) ng/mL Total Protein 7.5 (6.4-8.2) g/dL Albumin 3.6 (3.4-5.0) g/dL TSH 2.080 (0.358-3.740) uIU/mL Urine Color (Yellw/Straw) Urine Clarity (Clear) Urine pH (5.0-8.5) Ur Specific [place] (1.002-1.035) Urine Protein (Neg-Trace) mg/dL Urine Glucose (UA) (Negative) mg/dL Urine Ketones (Negative) mg/dL Urine Occult Blood (Negative) Urine Nitrate (Negative) Urine Bilirubin (Negative) Urine Urobilinogen (Less than 2) mg/dL Ur Leukocyte Esterase (Negative) Urine RBC (0-3) /hpf Urine WBC (0-5) /hpf Ur Squamous Epith Cells (0-5) /hpf Urine Bacteria (None) /hpf Hyaline Casts (0-3) /lpf Urine Mucus (Occasional) /lpf Micro UA Comment Ur Microscopic Review Urine Culture Comments Salicylates 3.8 (2.8-20.0) mg/dL Urine Opiates Screen (Neg) Acetaminophen Less than 2.0 L (10.0-30.0) mcg/mL Ur Barbiturates Screen (Neg) Ur Amphetamines Screen (Neg) U Benzodiazepines Scrn (Neg) Urine Cocaine Screen (Neg) U Cannabinoids Screen (Neg) Serum Alcohol 59 H (0-5) mg/dL 01/18/18 01/18/18 Range/Units 21:10 21:10 WBC (4.0-11.0) th/mm3 RBC (4.00-5.30) mil/mm3 Hgb (11.6-15.3) gm/dL Hct (35.0-46.0) % MCV (80.0-100.0) fL MCH (27.0-34.0) pg MCHC (32.0-36.0) % RDW (11.6-17.2) % Plt Count (150-450) th/mm3 MPV (7.0-11.0) fL Neut % (Auto) (16.0-70.0) % Lymph % (Auto) (9.0-44.0) % Bollinger % (Auto) (0.0-8.0) % Eos % (Auto) (0.0-4.0) % Baso % (Auto) (0.0-2.0) % Neut # (Auto) (1.8-7.7) th/mm3 Lymph # (Auto) (1.0-4.8) th/mm3 Bollinger # (Auto) (0.0-0.9) th/mm3 Eos # (Auto) (0.0-0.4) th/mm3 Baso # (Auto) (0.0-0.2) th/mm3 WBC Differential Differential Comment Sodium (136-145) meq/L Potassium (3.5-5.1) meq/L Chloride (98-107) meq/L Carbon Dioxide (21.0-32.0) meq/L Anion Gap (5-15) meq/L BUN (7-18) mg/dL Creatinine (0.50-1.00) mg/dL Estimated GFR (>89) mL/min Random Glucose (74-106) mg/dL Calcium (8.5-10.1) mg/dL Magnesium (1.5-2.5) mg/dL Total Bilirubin (0.2-1.0) mg/dL AST (15-37) U/L ALT (10-53) U/L Alkaline Phosphatase (45-117) U/L Troponin I (0.02-0.05) ng/mL Total Protein (6.4-8.2) g/dL Albumin (3.4-5.0) g/dL TSH (0.358-3.740) uIU/mL Urine Color Yellow (Yellw/Straw) Urine Clarity Hazy H (Clear) Urine pH 5.0 (5.0-8.5) Ur Specific [place] 1.005 (1.002-1.035) Urine Protein Negative (Neg-Trace) mg/dL Urine Glucose (UA) Negative (Negative) mg/dL Urine Ketones Trace H (Negative) mg/dL Urine Occult Blood Negative (Negative) Urine Nitrate Negative (Negative) Urine Bilirubin Negative (Negative) Urine Urobilinogen Less than 2 (Less than 2) mg/dL Ur Leukocyte Esterase Moderate H (Negative) Urine RBC 2 (0-3) /hpf Urine WBC 5 (0-5) /hpf Ur Squamous Epith Cells 1 (0-5) /hpf Urine Bacteria Many H (None) /hpf Hyaline Casts 6 (0-3) /lpf Urine Mucus Few H (Occasional) /lpf Micro UA Comment Culture indicated Ur Microscopic Review Not Reportable Urine Culture Comments Culture indicated Salicylates (2.8-20.0) mg/dL Urine Opiates Screen Neg (Neg) Acetaminophen (10.0-30.0) mcg/mL Ur Barbiturates Screen Neg (Neg) Ur Amphetamines Screen Neg (Neg) U Benzodiazepines Scrn Neg (Neg) Urine Cocaine Screen Neg (Neg) U Cannabinoids Screen Neg (Neg) Serum Alcohol (0-5) mg/dL Discharge Plan Discharge Disposition Patient Disposition: Sign Out(ED Internal Use Only) Discharge Details Diagnosis: Suicide attempt by drug ingestion Physicians Team ED Provider: Bailey Truong Primary Care Provider: Carlos Alberto Thrasher Rxs /Orders / Referrals /Forms Prescriptions: No Action bupropion HCl [Wellbutrin XL] 150 mg Tablet Extended Release 24 Hr 150 mg PO QAM RF: 0 buspirone RF: 0 clonazepam RF: 0 Discharge Interventions Interventions: Vital Signs Last Done: 01/19/18 01:00 Status ED Status: Medically Cleared
[2018-01-18] MEDS ORDERED: Sod Chloride 0.9% Inj 1,000 ML IV.SIG SCH ×2 (20:30→22:15)
[2018-01-18 20:47] LABS: Baso # (Auto) 0.1 th/mm3 (0.0-0.2); Baso % (Auto) 0.5 % (0.0-2.0); Eos % (Auto) 0.2 % (0.0-4.0); Hematocrit 36.1 % (35.0-46.0); Hemoglobin 11.4 gm/dL (11.6-15.3); Lymph # (Auto) 1.8 th/mm3 (1.0-4.8); Mean Corpuscular HGB Conc 31.5 % (32.0-36.0); Mean Corpuscular Hemoglobin 25.4 pg (27.0-34.0); Mean Corpuscular Volume 80.7 fL (80.0-100.0); Mean Platelet Volume 6.9 fL (7.0-11.0); Mono # (Auto) 0.6 th/mm3 (0.0-0.9); Mono % (Auto) 4.3 % (0.0-8.0); Neut # (Auto) 11.6 th/mm3 (1.8-7.7); Platelet Count 370 th/mm3 (150-450); Red Blood Count 4.48 mil/mm3 (4.00-5.30); Red Cell Distribution Width 18.9 % (11.6-17.2); White Blood Count 14.1 th/mm3 (4.0-11.0)
[2018-01-18 21:18] LABS: Albumin 3.6 g/dL (3.4-5.0); Anion Gap 15 meq/L (5-15); Aspartate Aminotransferase 18 U/L (15-37); Blood Urea Nitrogen 12 mg/dL (7-18); Calcium 8.3 mg/dL (8.5-10.1); Carbon Dioxide 16.1 meq/L (21.0-32.0); Chloride 110 meq/L (98-107); Glomerular Filtration Rate 74 mL/min (>89); Glucose,Random 76 mg/dL (74-106); Potassium 3.1 meq/L (3.5-5.1); Sodium 141 meq/L (136-145)
[2018-01-18 21:19] LABS: Alanine Aminotransferase 18 U/L (10-53)
[2018-01-18 21:22] LABS: Alcohol 59 mg/dL (0-5)
[2018-01-18 21:28] LABS: Alkaline Phosphatase 102 U/L (45-117); Total Protein 7.5 g/dL (6.4-8.2)
[2018-01-18 21:39] LABS: Bacteria,Urine Many /hpf; Bilirubin,Urine Negative (Negative); Clarity,Urine Hazy (Clear); Color,Urine Yellow (Yellw/Straw); Glucose,Urine (UA) Negative (Negative); Hyaline Casts,Urine 6 /lpf (0-3); Leukocyte Esterase,Urine Moderate (Negative); Mucus,Urine Few /lpf (Occasional); Nitrite,Urine Negative (Negative); Specific Gravity,Urine 1.005 (1.002-1.035); Squamous Epithelial Cell,Urine 1 /hpf (0-5)
[2018-01-18 21:44] LABS: Amphetamine Screen,Urine Neg (Neg); Barbiturate Screen,Urine Neg (Neg); Cannabinoid Screen,Urine Neg (Neg); Cocaine Screen,Urine Neg (Neg); Opiate Screen,Urine Neg (Neg)
--- NOTE | 2018-01-19 08:21 | ECG ---
Date Performed: 01/19/2018 Time Performed: 02:13:10 PTAGE: 52 years EKG: Sinus rhythm NORMAL ECG PREVIOUS TRACING : 01/18/2018 20.14 DOCTOR: Aime Fowler Interpretating Date/Time 01/19/2018 08:20:32
--- NOTE | 2018-01-19 08:30 | ECG ---
Date Performed: 01/18/2018 Time Performed: 20:14:29 PTAGE: 52 years EKG: Sinus rhythm NONSPECIFIC T-WAVE ABNORMALITY BORDERLINE ECG PREVIOUS TRACING : 11/26/2016 09.27 DOCTOR: Aime Fowler Interpretating Date/Time 01/19/2018 08:27:05
--- NOTE | 2018-01-19 17:26 | ED ---
HPI - Psych - General Source: patient, family, EMS, police Mode of arrival: EMS Limitations: no limitations - History of Present Illness MD complaint: suicidal ideation, feels depressed Onset (ago): week(s) Duration: changing over time History of same: No Relieving factors: none Exacerbating factors: other (Marital stress) Context: new medication(s), significant life stressor Associated psychiatric symptoms: depression, other (Anxiety) Associated symptoms: denies other symptoms Treatments prior to arrival: placed on mental health hold If self harm: other (Denies at present) - General Chief Complaint: Psychiatric Symptoms Stated Complaint: OD/Psych ([facility]) Time Seen by Provider: 01/19/18 15:55 - History of Present Illness HPI Narrative: History of Present Illness HPI Narrative: Patient is a 52-year-old, , unemployed female with reported history of depression and anxiety, no previous psychiatric history, no previous suicide attempt, presenting to the emergency department under Goldsmith act initiated by law enforcement after intentionally overdosing on trazodone. The report alleges that the patient's reported to EMS that the patient had consumed approximately 10-15 tablets of trazodone with alcohol and he was unsure if she was trying to commit suicide. When the police arrived they found her conscious but incoherent. When she was asked what she thought would happen by taking that many pills "she stated she thought it would kill her."The patient reports that she had been involved in an argument with her that it lasted approximately 3 days. She reports ongoing marital stress related to him working many hours and she feels like he does not pay enough attention to her. She also reports that she has not been feeling well from a psychiatric perspective for several months and that her outpatient psychiatrist, Dr. Wiley has changed her medication with no improvement. She reports medication compliance. She endorses increased in symptoms of anxiety, poor sleep, some irritability, feeling like she is abrupt in her interactions with her and her family. She does tell me that in the past she has been treated with Prozac with positive improvement. EMR is reviewed. No previous contact with [facility] psychiatry.Patient on arrival with blood alcohol level of 59. Patient diagnosed with UTI. Patient is seen. She is alert and oriented. Her speech is clear, logical. Affect appears depressed. Mood is depressed as well. There is no evidence of any psychosis and no niecy. Patient denies current suicidal or homicidal ideation, intent or plan. Attention and focus are adequate. There is no evidence of any hallucinations, no delusions, no paranoia. (Alanna Soto) - Related Data Home Medications Medication Instructions Recorded Confirmed bupropion HCl [Wellbutrin XL] 150 mg PO QAM 01/18/18 01/19/18 Allergies Allergy/AdvReac Type Severity Reaction Status Date / Time No Known Allergies Allergy Verified 01/18/18 20:10 PMF - History History Provided By: Patient, Hall Coordinator / EMT - Medical History Medical History: Medical History (Last Reviewed 01/18/18 @ 20:24 by SUSY Moreno) Anxiety Depression - Social History I have reviewed the patient's Social History: Yes - Tobacco History Smoking Status: Never smoker - Alcohol History How Often Do You Have a Drink Containing Alcohol: 4 or more times a week - Substance Use History Substance History: No History of Abuse - Travel History Recent Travel in the [facility] Within the Last 8 Weeks: No Recent Travel Out of the Country Within the Last 8 Weeks: No - Immunization History Tetanus Immunization: Unsure Psychiatric History - Psychiatric History Psychiatric Treatment History: History of Psychiatric Treatment History of Inpatient Treatment: No Firearms in Home: No - Psychiatric History No previous inpatient psychiatric hospitalizations. No previous suicide attempt. Patient began treatment for depression approximately 20 years ago. She has taken Prozac in the past. Her outpatient psychiatrist is Dr. Wliey. She has been seeing Dr. Wiley since September. She feels that current medications are not helping. (Alanna Soto) - Legal History Negative (Alanna Soto) - Family Psychiatric History Mother with history of depression. Sister with history of depression. (Noni Sotos) Physical Exam - General Limitations: no limitations Mental Status Examination Consciousness: Alert Orientation: x4 Motor Activity: Normal gait Speech: Unremarkable Language: Adequate Fund of Knowledge: Adequate Attention and Concentration: Adequate Memory: Unremarkable Mood: Sad Affect: Sad, Blunt Thought Process & Associations: Intact, Logical, Goal directed Thought Content: Appropriate Hallucination Type: None Delusion Type: None Suicidal Ideation: No Suicidal Plan: No Suicidal Intention: No Homicidal Ideation: No Homicidal Plan: No Homicidal Intention: No Insight: Fair Judgment: Impulsive Initial Documented Vital Signs Temperature 98.6 F 01/18/18 20:17 Pulse Rate 90 01/18/18 20:17 Respiratory Rate 14 01/18/18 20:17 Blood Pressure 143/74 H 01/18/18 20:17 Pulse Oximetry 100 01/18/18 20:17 Last Documented Vital Signs Temperature 97.8 F 01/19/18 10:00 Pulse Rate 78 01/19/18 10:00 Respiratory Rate 16 01/19/18 10:00 Blood Pressure 118/77 01/19/18 10:00 Pulse Oximetry 99 01/19/18 10:00 MDM - Psych - Diagnosis (1) Major depressive disorder Code(s): F32.9 - Major depressive disorder, single episode, unspecified Status : Acute (2) Anxiety disorder Code(s): F41.9 - Anxiety disorder, unspecified Status: Acute - Lab Data Result diagrams: 01/18/18 20:00 01/18/18 20:00 - [facility] Narrative Medical decision making narrative: At the time of this evaluation the patient meets criteria for inpatient psychiatric admission for further evaluation, for safety, for stabilization and for medication adjustment. The patient's has contacted her primary care physician who also would like the patient to be admitted for medication adjustment and recommends consideration of her going back on Prozac. I spoke with her over the phone who agrees with current treatment plan. (Alanna Soto) - Lab Data POC Results POC Urine Results Negative Lab Results 01/18/18 01/18/18 01/18/18 Range/Units 20:00 20:00 20:00 WBC 14.1 H (4.0-11.0) th/mm3 RBC 4.48 (4.00-5.30) mil/mm3 Hgb 11.4 L (11.6-15.3) gm/dL Hct 36.1 (35.0-46.0) % MCV 80.7 (80.0-100.0) fL MCH 25.4 L (27.0-34.0) pg MCHC 31.5 L (32.0-36.0) % RDW 18.9 H (11.6-17.2) % Plt Count 370 (150-450) th/mm3 MPV 6.9 L (7.0-11.0) fL Neut % (Auto) 82.0 H (16.0-70.0) % Lymph % (Auto) 13.0 (9.0-44.0) % [place] % (Auto) 4.3 (0.0-8.0) % Eos % (Auto) 0.2 (0.0-4.0) % Baso % (Auto) 0.5 (0.0-2.0) % Neut # (Auto) 11.6 H (1.8-7.7) th/mm3 Lymph # (Auto) 1.8 (1.0-4.8) th/mm3 [place] # (Auto) 0.6 (0.0-0.9) th/mm3 Eos # (Auto) 0.0 (0.0-0.4) th/mm3 Baso # (Auto) 0.1 (0.0-0.2) th/mm3 WBC Differential . Differential Comment Auto diff final Sodium 141 (136-145) meq/L Potassium 3.1 L (3.5-5.1) meq/L Chloride 110 H (98-107) meq/L Carbon Dioxide 16.1 L (21.0-32.0) meq/L Anion Gap 15 (5-15) meq/L BUN 12 (7-18) mg/dL Creatinine 0.81 (0.50-1.00) mg/dL Estimated GFR 74 L (>89) mL/min Random Glucose 76 (74-106) mg/dL Calcium 8.3 L (8.5-10.1) mg/dL Magnesium 2.0 (1.5-2.5) mg/dL Total Bilirubin 0.2 (0.2-1.0) mg/dL AST 18 (15-37) U/L ALT 18 (10-53) U/L Alkaline Phosphatase 102 (45-117) U/L Troponin I Less than 0.02 L (0.02-0.05) ng/mL Total Protein 7.5 (6.4-8.2) g/dL Albumin 3.6 (3.4-5.0) g/dL TSH 2.080 (0.358-3.740) uIU/mL Urine Color (Yellw/Straw) Urine Clarity (Clear) Urine pH (5.0-8.5) Ur Specific Guild (1.002-1.035) Urine Protein (Neg-Trace) mg/dL Urine Glucose (UA) (Negative) mg/dL Urine Ketones (Negative) mg/dL Urine Occult Blood (Negative) Urine Nitrate (Negative) Urine Bilirubin (Negative) Urine Urobilinogen (Less than 2) mg/dL Ur Leukocyte Esterase (Negative) Urine RBC (0-3) /hpf Urine WBC (0-5) /hpf Ur Squamous Epith Cells (0-5) /hpf Urine Bacteria (None) /hpf Hyaline Casts (0-3) /lpf Urine Mucus (Occasional) /lpf Micro UA Comment Ur Microscopic Review Urine Culture Comments Salicylates 3.8 (2.8-20.0) mg/dL Urine Opiates Screen (Neg) Acetaminophen Less than 2.0 L (10.0-30.0) mcg/mL Ur Barbiturates Screen (Neg) Ur Amphetamines Screen (Neg) U Benzodiazepines Scrn (Neg) Urine Cocaine Screen (Neg) U Cannabinoids Screen (Neg) Serum Alcohol 59 H (0-5) mg/dL 01/18/18 01/18/18 Range/Units 21:10 21:10 WBC (4.0-11.0) th/mm3 RBC (4.00-5.30) mil/mm3 Hgb (11.6-15.3) gm/dL Hct (35.0-46.0) % MCV (80.0-100.0) fL MCH (27.0-34.0) pg MCHC (32.0-36.0) % RDW (11.6-17.2) % Plt Count (150-450) th/mm3 MPV (7.0-11.0) fL Neut % (Auto) (16.0-70.0) % Lymph % (Auto) (9.0-44.0) % [place] % (Auto) (0.0-8.0) % Eos % (Auto) (0.0-4.0) % Baso % (Auto) (0.0-2.0) % Neut # (Auto) (1.8-7.7) th/mm3 Lymph # (Auto) (1.0-4.8) th/mm3 [place] # (Auto) (0.0-0.9) th/mm3 Eos # (Auto) (0.0-0.4) th/mm3 Baso # (Auto) (0.0-0.2) th/mm3 WBC Differential Differential Comment Sodium (136-145) meq/L Potassium (3.5-5.1) meq/L Chloride (98-107) meq/L Carbon Dioxide (21.0-32.0) meq/L Anion Gap (5-15) meq/L BUN (7-18) mg/dL Creatinine (0.50-1.00) mg/dL Estimated GFR (>89) mL/min Random Glucose (74-106) mg/dL Calcium (8.5-10.1) mg/dL Magnesium (1.5-2.5) mg/dL Total Bilirubin (0.2-1.0) mg/dL AST (15-37) U/L ALT (10-53) U/L Alkaline Phosphatase (45-117) U/L Troponin I (0.02-0.05) ng/mL Total Protein (6.4-8.2) g/dL Albumin (3.4-5.0) g/dL TSH (0.358-3.740) uIU/mL Urine Color Yellow (Yellw/Straw) Urine Clarity Hazy H (Clear) Urine pH 5.0 (5.0-8.5) Ur Specific Guild 1.005 (1.002-1.035) Urine Protein Negative (Neg-Trace) mg/dL Urine Glucose (UA) Negative (Negative) mg/dL Urine Ketones Trace H (Negative) mg/dL Urine Occult Blood Negative (Negative) Urine Nitrate Negative (Negative) Urine Bilirubin Negative (Negative) Urine Urobilinogen Less than 2 (Less than 2) mg/dL Ur Leukocyte Esterase Moderate H (Negative) Urine RBC 2 (0-3) /hpf Urine WBC 5 (0-5) /hpf Ur Squamous Epith Cells 1 (0-5) /hpf Urine Bacteria Many H (None) /hpf Hyaline Casts 6 (0-3) /lpf Urine Mucus Few H (Occasional) /lpf Micro UA Comment Culture indicated Ur Microscopic Review Not Reportable Urine Culture Comments Culture indicated Salicylates (2.8-20.0) mg/dL Urine Opiates Screen Neg (Neg) Acetaminophen (10.0-30.0) mcg/mL Ur Barbiturates Screen Neg (Neg) Ur Amphetamines Screen Neg (Neg) U Benzodiazepines Scrn Neg (Neg) Urine Cocaine Screen Neg (Neg) U Cannabinoids Screen Neg (Neg) Serum Alcohol (0-5) mg/dL
[2018-01-19] MEDS ORDERED: Aluminum/Magnesium/Simethacone Susp 30 ML UDC PO PRN (17:33)
[2018-01-19] MEDS ORDERED: LORazepam 0.5 MG Tablet PO PRN (17:33)
[2018-01-20 09:55] LABS: Calcium 8.3 mg/dL (8.5-10.1); Potassium 3.4 meq/L (3.5-5.1)
[2018-01-20 10:22] LABS: Chol/HDL Ratio 3.48 Ratio; Free T4 (Free Thyroxine) 1.04 ng/dL (0.76-1.46); HDL Cholesterol 49.7 mg/dL (40.0-60.0)
--- NOTE | 2018-01-20 13:32 | P.HPPSY ---
Provisional Diagnosis Admission Date: January 19, 2018 17:46 Hershey I.: Major depressive disorder single episode code F 32.9 Competence Certification of Person's Competence To Provide Express and Informed Consent I have personally examined Leticia Anton, a person being served at [facility] on, January 20, 2018 1259. Express and informed consent means consent voluntarily given in writing, by a competent person, after sufficient explanation and disclosure of the subject matter involved to enable the person to make a knowing and willful decision without any element of force, fraud, deceit, duress, or other form of constraint or coercion. This person is 18 years of age or older, is not now known to be incompetent to consent to treatment with a guardian advocate, and does not have a health care surrogate or proxy currently making medical treatment decisions. I have found this person to be one of the following: [] Competent to provide express and informed consent, as defined above, for voluntary admission to this facility and is competent to provide express and informed consent for treatment. He/she has the consistent capacity to make well reasoned, willful, and knowing decisions concerning his or her medical or mental health treatment. The person fully and consistently understands the purpose of the admission for examination/placement and is fully capable of personally exercising all rights assured [place] [] Incompetent to provide express and informed consent to voluntary admission, and this is incompetent to provide express and informed consent to treatment. The person must be transferred to involuntary status and a petition for a guardian advocate filed with the Circuit Court. [] Refusing to provide express and informed consent to voluntary admission but is competent to provide express and informed consent for treatment. The person must be discharged or transferred to involuntary status. Form shall be completed within 24 hours of a person's arrival at the receiving facility and filed in the clinical record of each person: 1. Admitted on a voluntary basis 2. Permitted to provide express and informed consent to his/her own treatment 3. Allowed to transfer from involuntary to voluntary status 4. Prior to permitting a person to consent to his or her own treatment after having been previously found incompetent to consent to treatment. History of Present Illness Capacity: Has capacity Chief Complaint: Depressed mood with overdose of prescribed medication History of Present Illness: HPI narrative: Patient is a 51-year-old female admitted through the ED following an overdose of trazodone 10-15 tablets of undetermined strength along with unknown quantity of alcohol; blood alcohol level 59. Patient was brought to the hospital under a Goldsmith act signed by law enforcement with transportation by EMT. Information supplied by the patient herself but also review of statements of the EMT and a nurse practitioner who saw the patient in the ED. Patient was interviewed in the presence of a female nurse who reviewed with me the record of patient's behavior since admission to the unit. The patient has been arguing with her for the past 3 days and claims to have taken the overdose with the intent of getting his attention. She says that her has been working overtime and has little time for her. 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 Patient enjoyed some 22 years working in this very difficult and energy consuming profession. She has hd nothing to do since long term and gets little exercise. She has had gastric by pass surgery and lost over 100 pounds but has gained some of that back since giving up exercise. Since long term she has had a cholecystectomy by Dr. Rojas at [facility]. Beyond attention to her health she has little to occupy her time when not engaged in activities with her . About 3-4 months ago the patient had a medication change from sertraline to Wellbutrin which she felt was not helpful. She feels this is another factor in her gradual descent into this episode of depression. There is a note indicating that she feels that her [facility] psychiatrist does not listen to her. - Inpatient Certification I certify that the inpatient services were ordered in accordance with Medicare regulations governing the order. This includes certification that hospital inpatient services are reasonable and necessary and in the case of services not specified as inpatient-only under 42 CFR 419.22(n), that they are appropriately provided as inpatient services in accordance to with the 2-midnight benchmark under 43 CFR 412.3(e) I certify that inpatient psychiatric hospital services are medically necessary. Evaluation and treatment and/or diagnostic testing are expected to improve the patient's condition. The patient needs on a daily basis, active treatment furnished directly by or requiring the supervision of inpatient psychiatric facility personnel. Estimated Total Length of Stay (Days): 3 Plans for Post Hospital Care: Home Review of Systems Gastrointestinal: Reports other (Patient denies any symptoms of dumping syndrome since her gastric bypass) Psychiatric: Reports anxiety, Reports depression, Reports lack of enjoyment (In the past multiple GI and obesity problems) [facility] - History History Provided By: Patient - Medical History Medical History: Medical History (Last Reviewed 01/18/18 @ 20:24 by SUSY Moreno) Anxiety Depression - Family History Family History: Family History (Last Updated 01/20/18 @ 13:25 by William Amaya MD) Other Depression - Tobacco History Second Hand Smoke Exposure: No Tobacco Use In Past 30 Days: No Smoking Status: Never smoker - Alcohol History How Often Do You Have a Drink Containing Alcohol: 4 or more times a week - Substance Use History Substance History: No History of Abuse - Substance Use Type Alcohol Type: alcohol per pt she drinks 4x a month 2-3 drinks pt level on admission 59 Status: Active Route Used: By Mouth Frequency: 2-3 mixed drinks per pt 4x month Reason for Use: Calm Down, Feels Good Comment: Patient is down playing her drinking. - Travel History Recent Travel in the [place] Within the Last 8 Weeks: Yes Recent Travel Out of the Country Within the Last 8 Weeks: No - Immunization History Tetanus Immunization: Unsure Hx Influenza Vaccine This Season: No Quality Measures - Psychiatric History Psychological trauma history: None - Patient Strengths Patient's strengths (minimum of 2): Education and intelligence. Medications and Allergies Active Medications: Active Medications Al Hydrox/Mg Hydrox/Simethicone (Mag-Al Plus Susp Liq) 30 ml PO Q6H PRN PRN Reason: DYSPEPSIA Al Hydroxide/Mg Hydroxide (Milk Of Magnesia Liq) 30 ml PO Q12H PRN PRN Reason: Mild Constipation Diphenhydramine HCl (Benadryl) 50 mg PO HS PRN PRN Reason: INSOMNIA Lorazepam (Ativan) 0.5 mg PO Q12H PRN PRN Reason: MODERATE TO SEVERE ANXIETY Sennosides (Senokot) 17.2 mg PO Q12H PRN PRN Reason: Moderate Constipation Allergies Allergy/AdvReac Type Severity Reaction Status Date / Time No Known Allergies Allergy Verified 01/18/18 20:10 Home Medications Medication Instructions Recorded Confirmed Type bupropion HCl [Wellbutrin XL] 150 mg PO QAM 01/18/18 01/19/18 History Results - Labs CBC & Chem 7: 01/18/18 20:00 01/20/18 08:56 Labs: Laboratory Results - last 24 hr 01/20/18 08:56 Sodium 144 Potassium 3.4 L Chloride 112 H Carbon Dioxide 23.0 Anion Gap 9 BUN 6 L Creatinine 0.84 Estimated GFR 71 L Random Glucose 86 Calcium 8.3 L Triglycerides 123 Cholesterol 173 LDL Cholesterol, Calc 99 HDL Cholesterol 49.7 Cholesterol/HDL Ratio 3.48 Vitamin B12 469 Free T4 1.04 Exam Vital signs: Vital Signs 01/19/18 18:43 01/20/18 05:52 Temperature 98.5 F 98.3 F Pulse Rate 84 77 Respiratory Rate 18 16 Blood Pressure 118/68 130/67 Pulse Oximetry 99 98 Intake & Output 01/19/18 01/20/18 01/20/18 18:59 06:59 18:59 Weight 98.089 kg Other: Weight On Admission 98.089 kg - Constitutional moderate distress, obese, cooperative - Routine HEENT Exam Head: Present: normocephalic Eye: Present: EOMI - Routine Neck Exam Present: supple Mental Status Examination Appearance: Disheveled Consciousness: Alert Orientation: x4 Motor Activity: Normal gait Speech: Unremarkable Language: Adequate Fund of Knowledge: Adequate Attention and Concentration: Adequate Memory: Unremarkable Mood: Sad Affect: Sad, Blunt Thought Process & Associations: Intact, Logical, Goal directed Thought Content: Appropriate Hallucination Type: None Delusion Type: None Suicidal Ideation: No Suicidal Plan: No Suicidal Intention: No Homicidal Ideation: No Homicidal Plan: No Homicidal Intention: No Insight: Fair Judgment: Impulsive Assessment and Plan - Plan Plan: Estimated LOS: [] days Justification for Continued Inpatient Stay: Patient remains depressed and uncertain about her future. Change in medication with soft observation for response and possible side effects. Patient in the past has responded well to Prozac and will be started on Prozac. Discharge Planning: Prior to discharge competence with patient's and social and political studies professor to determine what would be adequate management and observation once the acute symptoms are resolved. The patient will require 24-48 hours observation to determine the need for further acute inpatient treatment.
--- NOTE | 2018-01-20 15:56 | P.CONIM ---
History of Present Illness Consult date: 01/20/18 Requesting Physician: Alanna Soto Reason for Consult: UTI Primary Care Provider: Carlos Alberto Thrasher MD History of Present Illness: Mrs. Anton is a 52 y/o female with depression, generalized anxiety disorder, GERD, JOSE, and hx of gastric bypass surgery. She was brought to the ED at [facility] on 01/18/18 under a Goldsmith Act for psychiatric evaluation after intentionally overdosing on trazodone. Patient reported took 10-15 trazodone 100mg in an effort to get her to pay attention to her. According to the ED documentation the pt and her had been arguing for the previous 3 days prior to admission and she wanted to get his attention. Patient denies any previous suicide attempt. She does have a history of depression, and follows with [facility] as an outpt and recently reported some medication changes. Her labs upon admission noted an elevated WBC count to 14 and her UA was abnormal. Her Urine culture grew out E. coli. She denies any dysuria, urinary frequency, abd pain, nausea/vomiting, fevers, chills , back pain, or any foul smelling urine. Past Medical Hx: Depression Anxiety GERD RLS JOSE Past Surgical Hx: Gastric bypass Cholecystectomy Repair of paraesophageal hernia Tonsillectomy Family Hx: Noncontributory Social Hx: Hx of tobacco use (+)Alcohol use, 4 times per week [facility] Medical History Medical History Anxiety (Acute) Depression (Acute) Family History Family History Other Depression Social History Social History Substance History: Active Abuse Second Hand Smoke Exposure: No Smoking Status: Never smoker How Often Do You Have a Drink Containing Alcohol: 4 or more times a week Recent Travel in [place] within the Last 8 Weeks: Yes Recent Out of Country Travel within the Last 8 Weeks: No Substance Abuse Detail Alcohol: Substance Use Type Other:: alcohol per pt she drinks 4x a month 2-3 drinks pt level on admission 59 Substance Use Status: Active Route Used Substance Abuse: By Mouth Substance Frequency: 2-3 mixed drinks per pt 4x month Substance Abuse Comment: Patient is down playing her drinking. Reason for Use: Calm Down and Feels Good Immunization History Tetanus Immunization: Unsure Hx Influenza Vaccine This Season: No Medications and Allergies Allergies Allergy/AdvReac Type Severity Reaction Status Date / Time No Known Allergies Allergy Verified 01/18/18 20:10 Home Medications Medication Instructions Recorded Confirmed Type bupropion HCl [Wellbutrin XL] 150 mg PO QAM 01/18/18 01/19/18 History Active Medications: Active Medications Al Hydrox/Mg Hydrox/Simethicone (Mag-Al Plus Susp Liq) 30 ml PO Q6H PRN PRN Reason: DYSPEPSIA Al Hydroxide/Mg Hydroxide (Milk Of Magnesia Liq) 30 ml PO Q12H PRN PRN Reason: Mild Constipation Diphenhydramine HCl (Benadryl) 50 mg PO HS PRN PRN Reason: INSOMNIA Lorazepam (Ativan) 0.5 mg PO Q12H PRN PRN Reason: MODERATE TO SEVERE ANXIETY Sennosides (Senokot) 17.2 mg PO Q12H PRN PRN Reason: Moderate Constipation Physical Exam Vital signs: Last Vital Signs Temp 98.3 F 01/20/18 05:52 Pulse 77 01/20/18 05:52 Resp 16 01/20/18 05:52 BP 130/67 01/20/18 05:52 Pulse Ox 98 01/20/18 05:52 Narrative: GENERAL: NAD, AAOx3 SKIN: Warm and dry. HEENT: Atraumatic. Normocephalic. Pupils equal and round. No scleral icterus. No injection or drainage. No nasal bleeding or discharge. Mucous membranes pink and moist. NECK: Trachea midline. No JVD. CARDIO: Regular RESP: CTA bilaterally. ABD: +BS, soft, non-tender, nondistended. Hepatic and splenic margins not palpable. EXT: Extremities without clubbing, cyanosis, or edema. No obvious deformities. NEURO: Awake and alert. No obvious cranial nerve deficits. Motor grossly within normal limits. Five out of 5 muscle strength in the arms and legs. Normal speech. PSYCH: Appropriate mood and affect; insight and judgment normal. Results Labs CBC & Chem 7: 01/18/18 20:00 01/20/18 08:56 Assessment and Plan Assessment (1) Major depressive disorder: Code(s): F32.9 - Major depressive disorder, single episode, unspecified Status: Acute (2) Anxiety disorder: Code(s): F41.9 - Anxiety disorder, unspecified Status: Acute Plan Depression Anxiety Possible suicide attempt admitted under Goldsmith Act - Management per Psychiatry UTI - Urine culture growing out E. coli but pt without any urinary symptoms. - Recheck UA today if still appears abnormal we will give Cipro x 3 days. GERD - PPI RLS - Pt is on Ropinirole 3mg HS as an outpt
[2018-01-20 17:43] LABS: Bacteria,Urine Few /hpf; Bilirubin,Urine Negative (Negative); Clarity,Urine Hazy (Clear); Color,Urine Yellow (Yellw/Straw); Glucose,Urine (UA) Negative (Negative); Leukocyte Esterase,Urine Moderate (Negative); Mucus,Urine Few /lpf (Occasional); Nitrite,Urine Negative (Negative); Specific Gravity,Urine 1.013 (1.002-1.035); Squamous Epithelial Cell,Urine 8 /hpf (0-5)
[2018-01-20] MEDS: Ciprofloxacin 250 MG Tablet PO SCH (21:31)
[2018-01-21 05:17] VITALS: BP 122/62; PULSE 74; RESP 16; TEMP 98.5; O2SAT 96
[2018-01-21] MEDS: Ciprofloxacin 250 MG Tablet PO SCH (08:17)
[2018-01-21] MEDS ORDERED: Pantoprazole Sodium 20 MG DR Tablet PO SCH (09:00)
--- NOTE | 2018-01-21 10:26 | P.DSPSY ---
Psychiatry Discharge Summary Inpatient Psychiatric care?: Yes Advance Directives: No Reason for Unknown:: Other Other Reason for Unknown: Patient does not have an advance directive Mental Health Advance Directive: No Health Care Proxy: No - Admission Admission Date: January 19, 2018 17:46 Brief History: HPI narrative: Patient is a 51-year-old female admitted through the ED following an overdose of trazodone 10-15 tablets of undetermined strength along with unknown quantity of alcohol; blood alcohol level 59. Patient was brought to the hospital under a Goldsmith act signed by law enforcement with transportation by EMT. Information supplied by the patient herself but also review of statements of the EMT and a nurse practitioner who saw the patient in the ED. Patient was interviewed in the presence of a female nurse who reviewed with me the record of patient's behavior since admission to the unit. The patient has been arguing with her for the past 3 days and claims to have taken the overdose with the intent of getting his attention. She says that her has been working overtime and has little time for her. 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 Patient enjoyed some 22 years working in this very difficult and energy consuming profession. She has hd nothing to do since [facility] and gets little exercise. She has had gastric by pass surgery and lost over 100 pounds but has gained some of that back since giving up exercise. Since [facility] she has had a cholecystectomy by Dr. Rojas at [facility]. Beyond attention to her health she has little to occupy her time when not engaged in activities with her . About 3-4 months ago the patient had a medication change from sertraline to Wellbutrin which she felt was not helpful. She feels this is another factor in her gradual descent into this episode of depression. There is a note indicating that she feels that her [facility] psychiatrist does not listen to her. Tobacco Use In Past 30 Days: No How Often Do You Have a Drink Containing Alcohol: 4 or more times a week Hospital Course: Patient had an uneventful recovery. She felt that she could return to her home with an improved relationship with her who now understands her need for more attention. At the time of her discharge patient showed no signs of the depression are thoughts of harming herself. Patient did have a urinary tract infection which Cipro was prescribed. The patient's home medications were discontinued and she was hopeful of starting a new medication under the direction of her outpatient psychiatrist Dr. Wiley. Patient did not want to start an antidepressant at this time until she has had a chance to consult with her primary care physician and Dr. Wiley. Patient participated in all activities and was monitored by the nursing staff and seen for the initial history and physical yesterday again today for discharge. - Discharge Discharge Date: 01/21/18 Discharge Disposition: Home - Discharge Time > 30 minutes Mental Status Examination Appearance: Disheveled Consciousness: Alert Orientation: x4 Motor Activity: Normal gait Speech: Unremarkable Language: Adequate Fund of Knowledge: Adequate Attention and Concentration: Adequate Memory: Unremarkable Mood: Sad Affect: Sad, Blunt Thought Process & Associations: Intact, Logical, Goal directed Thought Content: Appropriate Hallucination Type: None Delusion Type: None Suicidal Ideation: No Suicidal Plan: No Suicidal Intention: No Homicidal Ideation: No Homicidal Plan: No Homicidal Intention: No Insight: Fair Judgment: Impulsive Discharge/Advance Care Plan - Results Vital Signs: Last Vital Signs Temp 98.5 F 01/21/18 05:16 Pulse 74 01/21/18 05:16 Resp 16 01/21/18 05:16 BP 122/62 01/21/18 05:16 Pulse Ox 96 01/21/18 05:16 Lab Results: Abnormal Lab Results 01/20/18 01/20/18 01/20/18 08:56 08:56 17:07 Hemoglobin A1c 5.0 Triglycerides 123 LDL Cholesterol, Calc 99 HDL Cholesterol 49.7 Cholesterol/HDL Ratio 3.48 Vitamin B12 469 Free T4 1.04 Urine Color Yellow Urine Clarity Hazy H Urine pH 5.0 Ur Specific [place] 1.013 Urine Protein Negative Urine Glucose (UA) Negative Urine Ketones Negative Urine Occult Blood Negative Urine Nitrate Negative Urine Bilirubin Negative Urine Urobilinogen Less than 2 Ur Leukocyte Esterase Moderate H Urine RBC 1 Urine WBC 10 H Ur Squamous Epith Cells 8 Urine Bacteria Few H Urine Mucus Few H Ur Microscopic Review Not Reportable Laboratory Results Hemoglobin A1c 5.0 % (4.3-6.0) 01/20/18 08:56 Triglycerides 123 mg/dL (42-150) 01/20/18 08:56 Cholesterol 173 mg/dL (120-200) 01/20/18 08:56 LDL Cholesterol, Calc 99 mg/dL (0-99) 01/20/18 08:56 HDL Cholesterol 49.7 mg/dL (40.0-60.0) 01/20/18 08:56 TSH 2.080 uIU/mL (0.358-3.740) 01/18/18 20:00 Free T4 1.04 ng/dL (0.76-1.46) 01/20/18 08:56 Urine Culture Comments Culture indicated 01/18/18 21:10 Summary of Procedures: None Pending Results: None - Medications Number of antipsychotic medications at discharge: 0 - Discharge Care Plan Goals to Promote Your Health: * To prevent worsening of your condition and complications * To maintain your health at the optimal level Directions to Meet Your Goals: Take your medications as prescribed Follow your dietary instruction Follow activity as directed Keep your appointments as scheduled Take your immunizations and boosters as scheduled If your symptoms worsen call your PCP, if no PCP go to Urgent Care Center or Emergency Room For 01/09 questions related to your inpatient stay or results of tests pending at discharge, please contact Dr. William Amaya MD at Smoking is Dangerous to Your Health. Avoid second hand smoking
== END 2018-01-21 11:30 | disposition home or self-care (01) ==
LOC: NEPC 20:00 → NEDA 01-19 17:46 → H260 01-19 18:25
PROVIDERS: ADMIT Psychiatry & Neurology Child & Adolescent Psychiatry; ATTEND Psychiatry & Neurology Child & Adolescent Psychiatry